=== PATIENT | male | born 1985 | race Caucasian/White ===

== ENCOUNTER 2022-02-09 03:40 | Emergency (ER) | payer SELFPAY ==
[~2022-02-09 03:40] MED LIST: AZITHROMYCIN250 MG PO
[2022-02-09 04:07] LABS: EOSINOPHIL 3.3 % (0-5); HCT 42.4 % (42.0-52.0); HGB 14.5 g/dl (13.2-18.0); LYMPHOCYTE 37.3 % (15-48); MCH 30.3 pg (25.0-31.0); MCHC 34.2 g/dL (32.0-36.0); MCV 88.7 fL (78.0-100.0); MONOCYTE 8.8 % (0-12); MPV 9.5 fL (6.0-9.5); NEUTROPHIL 49.1 % (41-80); NRBC 0; PLT 268 K/uL (150-400); RBC 4.78 M/uL (4.70-6.00); RDW 11.9 % (11.5-14.0); WBC 9.4 K/uL (4.0-10.5)
[2022-02-09 04:24] LABS: BILIRUBIN - TOTAL 0.5 mg/dL (0.2-1.0); BUN/CREAT RATIO (CALC) 12.2 RATIO; CREATININE 1.15 mg/dL (0.67-1.17); GLOBULIN (CALCULATION) 3.7 g/dL; POTASSIUM 3.4 mmol/L (3.5-5.1); TOTAL PROTEIN 7.7 g/dL (6.4-8.2)
[2022-02-09] MEDS ORDERED: FLOMAX0.4 MG PO (06:10)
[2022-02-09] MEDS ORDERED: PERCOCET 5-3251 EACH PO (06:10)
[2022-02-09] MEDS ORDERED: NAPROXEN500 MG PO (06:10)
[2022-02-09] MEDS ORDERED: ONDANSETRON ODT4 MG PO (06:13)
[2022-02-09] MEDS ORDERED: PHENERGAN25 M1 PO (06:13)
[2022-02-09 06:52] LABS: BILIRUBIN NEGATIVE (NEGATIVE); BLOOD 3+ Ery/uL (NEGATIVE); CLARITY CLEAR (CLEAR); COLOR YELLOW (YELLOW); GLUCOSE (U) NORMAL (NORMAL); LEUKOCYTES NEGATIVE Leu/uL (NEGATIVE); NITRITE NEGATIVE (NEGATIVE); PROTEIN NEGATIVE (NEGATIVE); SPECIFIC GRAVITY >=1.030 (1.001-1.030); UROBILINOGEN 0.2 mg/dL (0.2-1.0); pH 5.5 (5.0-9.0)
[2022-02-09 07:05] LABS: BACTERIA 1+; CALCIUM OXALATE CRYSTALS MODERATE; MUCOUS TRACE; SQUAMOUS EPITHELIAL CELLS RARE; URINARY RBC 20-50
== END 2022-02-09 07:46 | disposition home or self-care (01) ==
LOC: FER 03:40
PROVIDERS: Internal Medicine
DX: N13.2 Hydronephrosis with renal and ureteral calculous obstruction (principal)
CPT/HCPCS: 36415; 80053; 81001; 83690; 85025; 87088; J1170; J2543; J2550; J7030